=== PATIENT | female | born 2000 | race African-American/Black ===

== ENCOUNTER 2021-06-10 17:48 | Emergency (ER) | payer OTHER ==
[~2021-06-10] VITALS: Ht 165.1 cm; Wt 81.7 kg
[2021-06-10] MEDS ORDERED: FAMOTIDINE 20MG/2ML IV (PEPCID) IV STA (18:11)
[2021-06-10] MEDS ORDERED: fentaNYL INJ 100 MCG/2 ML AMP IVP STA (18:11)
[2021-06-10] MEDS ORDERED: LACTATED RINGERS 1,000 ML IV STA (18:11)
[2021-06-10] MEDS ORDERED: ONDANSETRON 4 MG/2 ML (SDV) Z0FRAN IVP ONE (18:15)
--- NOTE | 2021-06-10 18:19 | ED Abdominal Pain ---
General Chief Complaint: Abdominal/GI Problems Stated Complaint: ABD PAIN,VOMITTING BLOOD Source of Information: Patient Exam Limitations: No Limitations (МАРИЯ RATLIFF MD) History of Present Illness Date Seen by Provider: Jun 10, 2021 Time Seen by Provider: 18:00 Initial Comments Here with report of upper and right-sided abdominal pain for last several days associated with nausea and vomiting. She states that she had some bloody sputum that she coughed up today. Does have history of HIV since with okay CD4 counts and viral load per her. She has been medication for this and doing well. She was changed last week to a new medicine but started having the vomiting afterwards does not appear to be tolerating that well. She called her HIV doctor who had her stop the medicine. I will reinitiate a new one at some point but return to get her better now. Patient is worried about her liver some of the medicines that she has had to take can cause problems with the liver. She has not had any vomiting in the last few hours. She was trying to be seen at [facility] but they were very busy. She is a student at [employer]. Denies blood in her urine or stool. Timing/Duration: 3-4 Days, Changing Over Time, Getting Worse (Today) Severity/Quality: Moderate, Aching, Cramping Location: RUQ, RLQ, Epigastric Radiation: RUQ, Epigastric Activities at Onset: None Modifying Factors: Worsens With Eating Associated Symptoms: No Back Pain, No Chest Pain, No Fever/Chills, No Fatigue; Nausea/Vomiting; No Swelling/Mass in Abdomen, No Weakness (МАРИЯ RATLIFF MD) Allergies and Home Medications Allergies Coded Allergies: No Known Drug Allergies (Unverified , 06/10/21) Patient Home Medication List Home Medication List Reviewed: Yes (МАРИЯ RATLIFF MD) Review of Systems Review of Systems Constitutional: see HPI; No chills, No fever EENTM: No Symptoms Reported Respiratory: Cough; Denies Shortness of Air Cardiovascular: Denies Chest Pain, Denies Edema Gastrointestinal: Denies Diarrhea; Nausea, Vomiting Genitourinary: No Symptoms Reported Musculoskeletal: no symptoms reported Skin: no symptoms reported (МАРИЯ RATLIFF MD) All Other Systems Reviewed Negative Unless Noted: Yes (МАРИЯ RATLIFF MD) Past Qlxlebb-Aneqnd-Nywwdq Hx Patient Social History Tobacco Use?: No Use of E-Cig and/or Vaping dev: No Substance use?: No Alcohol Use?: Yes Alcohol Frequency: Rarely (МАРИЯ RATLIFF MD) Past Medical History Surgeries: No Respiratory: No Cardiac: No Neurological: No Genitourinary: No Gastrointestinal: No Musculoskeletal: No Endocrine: No Blood Disorders: Yes (HIV positive since ) (МАРИЯ RATLIFF MD) Family Medical History No Pertinent Family Hx (МАРИЯ RATLIFF MD) Physical Exam Vital Signs Vital Signs - First Documented 06/10/21 18:00 Temp 36.4 Pulse 76 Resp 14 B/P (MAP) 154/104 (121) Pulse Ox 100 O2 Delivery Room Air (MARIAM KRAMER) Vital Signs Capillary Refill : (МАРИЯ RATLIFF MD) Height/Weight/BMI Height: '" Weight: lbs. oz. kg; BMI Method: General Appearance: WD/WN, no apparent distress HEENT: PERRL/EOMI, pharynx normal Neck: full range of motion, supple Respiratory: lungs clear, normal breath sounds Cardiovascular: regular rate, rhythm, no murmur Gastrointestinal: soft; No guarding, No rebound; tenderness Extremities: non-tender, normal inspection Back: normal inspection, no CVA tenderness, no vertebral tenderness Neurologic/Psychiatric: alert, oriented x 3 Skin: normal color, warm/dry (МАРИЯ RATLIFF MD) Progress/Results/Core Measures Results/Orders Lab Results Laboratory Tests Test 06/10/21 18:00 06/10/21 18:07 Range/Units Urine Color YELLOW Urine Clarity SL CLOUDY Urine pH 7.0 5-9 Urine Specific [place] 1.025 H 1.016-1.022 Urine Protein NEGATIVE NEGATIVE Urine Glucose (UA) NEGATIVE NEGATIVE Urine Ketones 3+ H NEGATIVE Urine Nitrite NEGATIVE NEGATIVE Urine Bilirubin NEGATIVE NEGATIVE Urine Urobilinogen 1.0 < = 1.0 MG/DL Urine Leukocyte Esterase NEGATIVE NEGATIVE Urine RBC (Auto) TRACE-I H NEGATIVE Urine RBC 0-2 /HPF Urine WBC 0-2 /HPF Urine Squamous Epithelial Cells 2-5 /HPF Urine Crystals NONE /LPF Urine Bacteria MODERATE H /HPF Urine Casts NONE /LPF Urine Mucus SMALL H /LPF Urine Culture Indicated YES Urine Test NEGATIVE NEGATIVE White Blood Count 6.9 4.3-11.0 10^3/uL Red Blood Count 4.31 3.80-5.11 10^6/uL Hemoglobin 13.3 11.5-16.0 g/dL Hematocrit 39 35-52 % Mean Corpuscular Volume 91 80-99 fL Mean Corpuscular Hemoglobin 31 25-34 pg Mean Corpuscular Hemoglobin Concent 34 32-36 g/dL Red Cell Distribution Width 11.7 10.0-14.5 % Platelet Count 274 130-400 10^3/uL Mean Platelet Volume 9.8 9.0-12.2 fL Immature Granulocyte % (Auto) 0 % Neutrophils (%) (Auto) 76 H 42-75 % Lymphocytes (%) (Auto) 16 12-44 % Monocytes (%) (Auto) 7 0-12 % Eosinophils (%) (Auto) 1 0-10 % Basophils (%) (Auto) 1 0-10 % Neutrophils # (Auto) 5.2 1.8-7.8 X 10^3 Lymphocytes # (Auto) 1.1 1.0-4.0 X 10^3 Monocytes # (Auto) 0.5 0.0-1.0 X 10^3 Eosinophils # (Auto) 0.0 0.0-0.3 10^3/uL Basophils # (Auto) 0.1 0.0-0.1 10^3/uL Immature Granulocyte # (Auto) 0.0 0.0-0.1 10^3/uL Sodium Level 136 135-145 MMOL/L Potassium Level 4.2 3.6-5.0 MMOL/L Chloride Level 103 98-107 MMOL/L Carbon Dioxide Level 21 21-32 MMOL/L Anion Gap 12 5-14 MMOL/L Blood Urea Nitrogen 11 7-18 MG/DL Creatinine 0.79 0.60-1.30 MG/DL Estimat Glomerular Filtration Rate 109 BUN/Creatinine Ratio 14 Glucose Level 95 70-105 MG/DL Calcium Level 9.6 8.5-10.1 MG/DL Corrected Calcium 9.6 8.5-10.1 MG/DL Total Bilirubin 0.3 0.1-1.0 MG/DL Aspartate Amino Transf (AST/SGOT) 16 5-34 U/L Alanine Aminotransferase (ALT/SGPT) 7 0-55 U/L Alkaline Phosphatase 57 40-136 U/L C-Reactive Protein 1.99 H <0.50 MG/DL Total Protein 8.0 6.4-8.2 GM/DL Albumin 4.0 3.2-4.5 GM/DL (MARIAM KRAMER) Medications Given in ED Current Medications Medications Dose Ordered Sig/Frandy Route Start Time Stop Time Status Last Admin Dose Admin Iohexol 100 ml ONCE ONCE IV 06/10/21 19:30 06/10/21 19:31 UNV 06/10/21 19:49 100 ML Morphine Sulfate 4 mg ONCE ONCE IVP 06/10/21 19:30 06/10/21 19:31 DC 06/10/21 19:30 4 MG Ondansetron HCl 4 mg ONCE ONCE IVP 06/10/21 18:15 06/10/21 18:16 DC 06/10/21 18:19 4 MG Sodium Chloride 100 ml ONCE ONCE IV 06/10/21 19:30 06/10/21 19:31 UNV 06/10/21 19:49 80 ML (MARIAM KRAMER) Vital Signs/I&O 06/10/21 18:00 Temp 36.4 Pulse 76 Resp 14 B/P (MAP) 154/104 (121) Pulse Ox 100 O2 Delivery Room Air (MARIAM KRAMER) Progress Progress Note : Progress Note Seen and evaluated. IV, labs, UA and UCG ordered. LR 1 L bolus, Zofran 4 mg IV, Pepcid 20 mg IV and fentanyl 50 mcg IV ordered. Monitor patient. May require CT abdomen pelvis but we will see what labs show us first. Patient informed and agrees. (МАРИЯ RATLIFF MD) Progress Note : Time: 19:33 Progress Note Assumed care of the patient at shift change. I agree with above documented history and physical exam per Dr. RATLIFF. I agree with the plan. Patient notes that she had a significant decrease in her pain after 50 mcg of fentanyl however her pain is starting to come back and is now 6 out of 10 as opposed to an 8 out of 10 when she arrived. Pain started this morning. She has not had anything to eat today. Last oral intake was yesterday evening. On ree xamination her abdomen is quite tender in her epigastric and right upper quadrant with Abdi's sign noted. No mesenteric signs. Plan would be to obtain a CT of the chest abdomen and pelvis to rule out a pulmonary/pleural pathology above the diaphragm versus cholecystitis. Other differentials include PUD, duodenitis, gastritis. We will give her 4 of morphine IV now and if her C Ts are okay we can do a GI cocktail. If her imaging is normal we could also set her up to follow-up with Dr. Hernandez for further evaluation by ultrasound of the gallbladder, EGD etc. what ever is appropriate. Patient is in agreement with this plan. (MARIAM KRAMER) Diagnostic Imaging Diagonstic Imaging: CT (With IV contrast) Plain Films/CT/US/NM/MRI: chest, abdomen, pelvis Comments [facility] [place], [place] NAME: OSIRIS BAJWA [facility] REC#: [id number] PT STATUS: REG ER : 2000 PHYSICIAN: МАРИЯ RATLIFF MD ADMIT DATE: 06/10/21/ER FS Draft Date of Exam:06/10/21 CT CHEST/ABDOMEN/PELVIS W PROCEDURE: CT chest, abdomen, and pelvis with contrast. TECHNIQUE: Multiple contiguous axial images were obtained through the chest, abdomen, and pelvis after the administration of intravenous contrast. Auto Exposure Controls were utilized during the CT exam to meet ALARA standards for radiation dose reduction. INDICATION: Abdominal pain with vomiting. FINDINGS: The lungs are clear. There are no effusions or pneumothoraces. There is no hilar or mediastinal lymphadenopathy. The liver appears normal. The gallbladder is normal. Pancreas is normal. The stomach is distended with fluid. The spleen is not enlarged. Kidneys and adrenals appear normal. Small bowel is not dilated. Colon is unremarkable. Appendix is normal. There is a trace amount of free fluid in the cul-de-sac. Uterus and urinary bladder are unremarkable. Adnexa unremarkable. IMPRESSION: Trace amount of free fluid in the cul-de-sac. No other abnormality is seen. Dictated on workstation # [id number] Dict: 06/10/211953 Trans: 06/10/212002 [facility] [id number] Interpreted by: МАРИЯ MITCHELL MD Electronically signed by: Reviewed: Reviewed by Me (MARIAM KRAMER) Departure Impression Primary Impression: Right upper quadrant abdominal pain Disposition: 01 HOME, SELF-CARE Condition: Stable Departure-Patient Inst. Decision time for Depature: 20:34 (MARIAM KRAMER) Referrals: ANDREW HERNANDEZ NICOLE J MD (PCP) Primary Care Physician Patient Instructions: Gallbladder Diet, Severe Abdominal Pain, Adult (DC) Add. Discharge Instructions: Please review the handout for diet restrictions. I suggest you stay away from spicy, high acid foods. Eat a bland, high-fiber diet. Drink plenty of fluids. Zofran 1 tablet every 6 hours as necessary for nausea or vomiting. Hydrocodone 1 tablet every 4 hours as necessary for severe breakthrough pain. Tylenol 1000 mg every 8 hours as necessary for pain. Ibuprofen 800 mg every 8 hours necessary for pain. Omeprazole 40 mg daily to reduce acid in your stomach. Tums, Rolaids, Mylanta, Maalox etc. as necessary for breakthrough stomach pain. Call Dr. Hernandez the general surgeon at [place], [address] and request follow-up appointment to help work-up your pain. Tomorrow morning after 7:30 in the morning you can call the number at the top of the outpatient order form and request an appointment to do an ultrasound of your gallbladder and the results will be forwarded to Dr. Hernandez as well as the local ER doctor to review. Promptly return to the ER for severe, intractable pain, vomiting or other worrisome symptoms. Do not eat or drink anything for at least 6 hours prior to the ultrasound. All discharge instructions reviewed with patient and/or family. Voiced understanding. Scripts Ondansetron (Ondansetron Odt) 4 Mg Tab.rapdis 4 MG PO Q6H PRN for NAUSEA/VOMITING, #10 TAB 0 Refills Prov: MARIAM KRAMER 06/10/21 Hydrocodone/Acetaminophen (Hydrocodone-Acetamin 5-325 mg) 1 Each Tablet 1 TAB PO Q4H PRN for PAIN-MODERATE (5-7) for 3 Days, #15 TAB 0 Refills Prov: MARIAM KRAMER 06/10/21 Work/School Note: School/Childcare Release Date Seen in the Emergency Depa rtment: Jun 10, 2021 Time Dismissed from Emergency Department: 20:46 Return to School: Jun 12, 2021 Restrictions: No Restrictions Copy Copies To 1: ANDREW HERNANDEZ TIMOTHY D MD Jun 10, 2021 18:19 MARIAM KRAMER Jun 10, 2021 19:34
[2021-06-10 18:21] LABS: BILIRUBIN,URINE NEGATIVE (NEGATIVE); CLARITY,URINE SL CLOUDY; COLOR,URINE YELLOW; GLUCOSE, URINE (UA) NEGATIVE (NEGATIVE); KETONES,URINE 3+ (NEGATIVE); LEUKOCYTE ESTERASE ,URINE NEGATIVE (NEGATIVE); NITRITE,URINE NEGATIVE (NEGATIVE); PROTEIN,URINE NEGATIVE (NEGATIVE)
[2021-06-10 18:21] LABS: HEMATOCRIT 39 % (35-52); HEMOGLOBIN 13.3 g/dL (11.5-16.0); MEAN CORPUSCULAR HEMOGLOBIN 31 pg (25-34); MEAN CORPUSCULAR HGB CONC 34 g/dL (32-36); MEAN CORPUSCULAR VOLUME 91 fL (80-99); MEAN PLATELET VOLUME 9.8 fL (9.0-12.2); PLATELET COUNT 274 10^3/uL (130-400); WHITE BLOOD COUNT 6.9 10^3/uL (4.3-11.0)
[2021-06-10 18:22] LABS: BASOPHILS # (AUTO) 0.1 10^3/uL (0.0-0.1); BASOPHILS % (AUTO) 1 % (0-10); EOSINOPHILS % (AUTO) 1 % (0-10); LYMPHOCYTES % (AUTO) 16 % (12-44); MONOCYTES # (AUTO) 0.5 X 10^3 (0.0-1.0); MONOCYTES % (AUTO) 7 % (0-12); NEUTROPHILS # (AUTO) 5.2 X 10^3 (1.8-7.8); NEUTROPHILS % (AUTO) 76 % (42-75)
[2021-06-10 18:25] LABS: LYMPHOCYTES # (AUTO) 1.1 X 10^3 (1.0-4.0)
[2021-06-10 18:32] LABS: BACTERIA,URINE MODERATE /HPF; RBC,URINE 0-2 /HPF; WBC,URINE 0-2 /HPF
[2021-06-10 18:44] LABS: BILIRUBIN,TOTAL 0.3 MG/DL (0.1-1.0); CALCIUM 9.6 MG/DL (8.5-10.1); CREATININE SERUM 0.79 MG/DL (0.60-1.30); POTASSIUM 4.2 MMOL/L (3.6-5.0)
[2021-06-10] MEDS ORDERED: morphine INJ 10 MG/ML 1ML (SYR OR VIAL) IVP STA (19:15)
[2021-06-10] MEDS ORDERED: NS 100 ML (IVPB) BAG IV ONE (19:30)
[2021-06-10] MEDS ORDERED: IOHEXOL 350 MG/ML 100 ML (OMNIPAQUE 350) VIAL IV ONE (19:30)
[2021-06-10] MEDS ORDERED: morphine INJ 10 MG/ML 1ML (SYR OR VIAL) IVP ONE (19:30)
[2021-06-10] MEDS ORDERED: HOLD METFORMIN - RECEIVED CONTRAST 20 ML VIAL IV SCH (19:30)
--- NOTE | 2021-06-10 20:04 | Diagnostic Imaging Report ---
PROCEDURE: CT chest, abdomen, and pelvis with contrast. TECHNIQUE: Multiple contiguous axial images were obtained through the chest, abdomen, and pelvis after the administration of intravenous contrast. Auto Exposure Controls were utilized during the CT exam to meet ALARA standards for radiation dose reduction. INDICATION: Abdominal pain with vomiting. FINDINGS: The lungs are clear. There are no effusions or pneumothoraces. There is no hilar or mediastinal lymphadenopathy. The liver appears normal. The gallbladder is normal. Pancreas is normal. The stomach is distended with fluid. The spleen is not enlarged. Kidneys and adrenals appear normal. Small bowel is not dilated. Colon is unremarkable. Appendix is normal. There is a trace amount of free fluid in the cul-de-sac. Uterus and urinary bladder are unremarkable. Adnexa unremarkable. IMPRESSION: Trace amount of free fluid in the cul-de-sac. No other abnormality is seen. Dictated by: Dictated on workstation # [id number]
[2021-06-10] MEDS ORDERED: ONDA4TAB11 PO (20:46)
[2021-06-10] MEDS ORDERED: ACHD5005 PO (20:46)
[2021-06-10] MEDS ORDERED: RX-ONDANSETRON 4 MG ODT (ZOFRAN) PPK #4 PO STA (20:49)
[2021-06-10 20:59] VITALS: BP 122/66
== END 2021-06-10 21:00 | disposition home or self-care (01) ==
LOC: ER FS 17:50
DX: R10.11 Right upper quadrant pain (principal)
CPT/HCPCS: 36415; 71260; 74177; 80053; 81000; 84703; 85025; 86141; 87088

== ENCOUNTER → 2021-06-12 | Outpatient (CLI) | payer OTHER ==
[~2021-06-12] MED LIST: ACHD5005 PO; ONDA4TAB11 PO
--- NOTE | 2021-06-12 09:07 | Diagnostic Imaging Report ---
PROCEDURE: US Gallbladder. TECHNIQUE: Multiple real-time grayscale images were obtained over the right upper quadrant in various projections. INDICATION: Right upper quadrant pain. FINDINGS: Liver parenchyma appears normal. Liver is not enlarged measuring 15 cm. The intrahepatic biliary radicals are not dilated. The common bile duct is obscured but no obvious dilatation noted. The gallbladder shows multiple tiny gravel-like filling defects within the neck of the gallbladder. Gallbladder wall is mildly thickened at 3 to 4 mm. There is no pericholecystic fluid. Pancreas appears normal. The aorta is not enlarged. Vena cava and portal vein appear normal. Right kidney appears normal measuring 9.7 x 4.4 x 4.7 cm. There is no ascites. Positive Abdi sign. IMPRESSION: Cholelithiasis with multiple small gallstones and gallbladder wall thickening. Positive Abdi sign. Bile ducts do not appear dilated. Dictated by: Dictated on workstation # [id number]
== END ==
LOC: RAD 08:00
PROVIDERS: ATTEND Emergency Medicine
DX: K80.70 Calculus of gallbladder and bile duct without cholecystitis without obstruction (principal)
CPT/HCPCS: 76705